=== PATIENT | male | born 1985 | race American Indian/Alaskan Native ===

== ENCOUNTER 2021-07-06 22:07 | Emergency (ER) | payer SELFPAY ==
[2021-07-06] MEDS ORDERED: diphenhydrAMINE 50 MG/ML VIAL IV ONE (22:48)
[2021-07-06] MEDS ORDERED: HYDROmorphone 1 MG/1 ML INJ IV ONE (22:48)
[2021-07-06] MEDS ORDERED: ONDANSETRON 4 MG/2 ML INJ IV ONE (22:48)
--- NOTE | 2021-07-06 22:53 | Emergency Department Report ---
HPI - General Chief Complaint: Extremity Injury, Lower Time Seen by Provider: 07/06/21 22:40 - HPI HPI: Room 34 The patient is a 36-year-old female presenting with a chief complaint of sickle cell pain crisis. Patient states since yesterday she has had pain in her lower back bilateral knees and bilateral lower extremities. Patient denies any preceding trauma. Patient denies history of fever. Patient currently gives her pain a score of 9/10 ED Past Medical Hx - Past Medical History Previous Medical History?: Yes Additional medical history: Sickle cell disease - Surgical History Past Surgical History?: Yes Additional Surgical History: R HIP SURGERY secondary to avascular necrosis - Family History Family history: no significant - Social History Smoking Status: Never Smoker Substance Use Type: None (Denies illicit drug use), Alcohol (Occasional) - Medications Home Medications: Home Medications Medication Instructions Recorded Confirmed Last Taken Type HYDROcodone/APAP 5-325 [[place] 1 - 2 each PO Q6HR PRN #14 tablet 07/07/21 Unk nown Rx 5/325] Ibuprofen [Motrin 800 MG tab] 800 mg PO Q8HR PRN #20 tablet 07/07/21 Unknown Rx ED Review of Systems ROS: Stated complaint: POSS SICKLE CELL CRISIS, LOWER BODY PAIN Other details as noted in HPI Constitutional: denies: fever Eyes: denies: eye pain ENT: denies: throat pain Respiratory: no symptoms reported Cardiovascular: denies: chest pain Endocrine: no symptoms reported Gastrointestinal: denies: abdominal pain Genitourinary: denies: dysuria Musculoskeletal: back pain, arthralgia Neurological: denies: headache Hematological/Lymphatic: other (Sickle cell pain crisis) Physical Exam - Physical Exam Vital Signs: Vital Signs 07/06/21 22:25 Temperature 98.4 F Pulse Rate 96 H Respiratory 16 Rate Blood Pressure 114/74 O2 Sat by Pulse 98 Oximetry Physical Exam: GENERAL: The patient is well-developed but thin female lying on stretcher a ppearing to be in moderate discomfort. [] HEENT: Normocephalic. Atraumatic. Extraocular motions are intact. Patient has moist mucous membranes. NECK: Supple. Trachea midline CHEST/LUNGS: Clear to auscultation. There is no respiratory distress noted. HEART/CARDIOVASCULAR: Regular. There is no tachycardia. There is no gallop rub or murmur. ABDOMEN: Abdomen is soft, nontender. Patient has normal bowel sounds. There is no abdominal distention. SKIN: There is no rash. There is no edema. There is no diaphoresis. NEURO: The patient is awake, alert, and oriented. The patient is cooperative. The patient has no focal neurologic deficits. The patient has normal speech. GCS 15 MUSCULOSKELETAL: There is no evidence of acute injury. ED Course Vital Signs 07/06/21 22:25 Temperature 98.4 F Pulse Rate 96 H Respiratory 16 Rate Blood Pressure 114/74 O2 Sat by Pulse 98 Oximetry - Reevaluation(s) Reevaluation #1: 07/07/21 00:47 Patient sedated after pain meds. Will observe ED Medical Decision Making - Lab Data Result diagrams: 07/06/21 23:06 07/06/21 23:06 Laboratory Tests 07/06/21 07/06/21 07/06/21 23:06 23:06 23:06 WBC 4.0 L RBC 3.83 Hgb 10.0 L Hct 31.6 L MCV 83 L MCH 26 L MCHC 32 RDW 18.2 H Plt Count 151 Lymph % (Auto) 48.9 H Desha % (Auto) 9.8 H Eos % (Auto) 0.2 Baso % (Auto) 0.4 Lymph # (Auto) 2.0 Desha # (Auto) 0.4 Eos # (Auto) 0.0 Baso # (Auto) 0.0 Seg Neutrophils % 40.7 Seg Neutrophils # 1.6 L Percent Retic 1.01 Sickle Cell Screen Sodium 145 Potassium 2.7 L* Chloride 106.3 Carbon Dioxide 24 Anion Gap 17 BUN 4 L Creatinine 0.3 L Estimated GFR > 60 BUN/Creatinine Ratio 13 Glucose 92 Calcium 7.9 L HCG, Qual Valproic Acid < 2.8 L 07/06/21 07/07/21 23:06 00:00 WBC RBC Hgb Hct MCV MCH MCHC RDW Plt Count Lymph % (Auto) Desha % (Auto) Eos % (Auto) Baso % (Auto) Lymph # (Auto) Desha # (Auto) Eos # (Auto) Baso # (Auto) Seg Neutrophils % Seg Neutrophils # Percent Retic Sickle Cell Screen Positive Sodium Potassium Chloride Carbon Dioxide Anion Gap BUN Creatinine Estimated GFR BUN/Creatinine Ratio Glucose Calcium HCG, Qual Negative Valproic Acid - Differential Diagnosis Sickle cell pain crisis Critical care attestation.: If time is entered above; I have spent that time in minutes in the direct care of this critically ill patient, excluding procedure time. ED Disposition Clinical Impression: Sickle cell pain crisis Disposition: HOME / SELF CARE / HOMELESS Is pt being admited?: No Does the pt Need Aspirin: No Condition: Stable Additional Instructions: Return to the emergency department should you develop worsening symptoms, inability to tolerate food or liquids, high fever or any other concerns Prescriptions: Ibuprofen [Motrin 800 MG tab] 800 mg PO Q8HR PRN #20 tablet PRN Reason: Pain , Severe (7-10) HYDROcodone/APAP 5-325 [Muse 5/325] 1 - 2 each PO Q6HR PRN #14 tablet PRN Reason: Pain Referrals: ANASTASIA ARMENTA MD [Primary Care Provider] - 3-5 Days Time of Disposition: 02:00
[2021-07-06 23:42] LABS: Basophils % (Auto) 0.4 % (0.0-1.8); Eosinophils % (Auto) 0.2 % (0.0-4.3); Hematocrit 31.6 % (35.5-45.6); Lymphocytes % (Auto) 48.9 % (13.4-35.0); Mean Corpuscular HGB Conc 32 % (32-34); Mean Corpuscular Volume 83 fl (84-94); Monocytes # (Auto) 0.4 K/mm3 (0.0-0.8); Monocytes % (Auto) 9.8 % (0.0-7.3); Platelet Count 151 K/mm3 (140-440); Red Blood Count 3.83 M/mm3 (3.65-5.03); Red Cell Distribution Width 18.2 % (13.2-15.2)
[2021-07-07] LABS: BUN/Creatinine Ratio 13; Blood Urea Nitrogen 4 mg/dL (9-20); Calcium 7.9 mg/dL (8.4-10.2); Hemolysis Index 33
[2021-07-07] MEDS ORDERED: POTASSIUM CHLORIDE ER 20 MEQ TAB PO ONE (00:05)
[2021-07-07 01:11] VITALS: BP 114/75
[2021-07-07] MEDS ORDERED: KETOROLAC 30 MG/1 ML INJ IV ONE (01:48)
== END 2021-07-07 02:40 | disposition home or self-care (01) ==
LOC: ED 22:07
DX: D57.00 Hb-SS disease with crisis, unspecified (principal); Z98.890 Other specified postprocedural states; Z72.89 Other problems related to lifestyle; Z79.899 Other long term (current) drug therapy
CPT/HCPCS: 36415; 80048; 80164; 84703; 85025; 85045; 85660; 96374; 96375; 99284; J1170; J1200; J1885; J2405

== ENCOUNTER 2021-09-01 19:45 | Emergency (ER) | payer SELFPAY ==
[2021-09-02] MEDS ORDERED: MORPHINE 4 MG/1 ML INJ IV ONE (02:29)
[2021-09-02] MEDS ORDERED: ONDANSETRON 4 MG/2 ML INJ IV ONE (02:29)
[2021-09-02] MEDS ORDERED: KETOROLAC 30 MG/1 ML INJ IV ONE (02:29)
[2021-09-02] MEDS ORDERED: SODIUM CHLORIDE 0.9% 1000 ML 1,000 ML IV ONE (02:29)
[2021-09-02 03:24] LABS: Basophils # (Auto) 0.1 K/mm3 (0.0-0.1); Eosinophils % (Auto) 0.1 % (0.0-4.3); Hematocrit 34.2 % (30.3-42.9); Hemoglobin 10.8 gm/dl (10.1-14.3); Lymphocytes % (Auto) 13.7 % (13.4-35.0); Mean Corpuscular HGB Conc 32 % (30-34); Mean Corpuscular Volume 81 fl (79-97); Platelet Count 365 K/mm3 (140-440); Red Blood Count 4.25 M/mm3 (3.65-5.03)
[2021-09-02 03:29] LABS: Red Cell Distribution Width 22.8 % (13.2-15.2)
[2021-09-02 03:45] LABS: Alanine Aminotransferase 18 units/L (7-56); Albumin 4.4 g/dL (3.9-5); Blood Urea Nitrogen 13 mg/dL (7-17); Calcium 9.9 mg/dL (8.4-10.2); Hemolysis Index 4
[2021-09-02 03:46] LABS: BUN/Creatinine Ratio 33
--- NOTE | 2021-09-02 04:23 | XRay Report ---
CHEST 1 VIEW INDICATION: cough. COMPARISON: 08/04/2021 FINDINGS: SUPPORT DEVICES: None. HEART: Within normal limits. LUNGS/PLEURA: No acute air space or interstitial disease. ADDITIONAL FINDINGS: None. IMPRESSION: 1. No acute findings. Signer Name: Jaiden Montilla MD Signed: 09/02/2021 4:19 AM Workstation Name: [id number]
[2021-09-02] MEDS ORDERED: hydrOXYzine PAMOATE 25 MG CAP PO ONE (04:28)
--- NOTE | 2021-09-02 04:42 | Emergency Department Report ---
ED General Adult HPI - General Chief complaint: Extremity Injury, Lower Stated complaint: LEG PAIN Source: EMS Mode of arrival: Ambulatory Limitations: No Limitations - History of Present Illness Initial comments: Patient is a 36-year-old -[place] female with a history of chronic sickle cell anemia disease with regular pain exacerbations presents to the ED with complaint of acute extubation of her chronic pain characterized by us persistent bilateral upper and lower extremity pain with low back pain for the last 1 week, worse in the last 2 days. Patient states that she took her narcotic pain medications at home with no relief patient denies chest pain, shortness of breath, nausea and vomiting, diarrhea, dysuria, urinary frequency and urgency, cough, nasal and sinus congestion, sore throat, dysuria, urinary frequency and urgency, fever and chills. MD Complaint: Bilateral upper and lower extremity pain; back pain; sickle cell pain -: Sudden, week(s) (1) Location: back (lower), upper extremity (bilaterally), lower extremity (bilaterally) Radiation: non-radiation Severity scale (0 -10): 8 Quality: aching, sharp Consistency: constant Improves with: none Worsens with: movement Associated Symptoms: denies other symptoms. denies: confusion, chest pain, cough, diaphoresis, headaches, loss of appetite, malaise, nausea/vomiting, rash, seizure, shortness of breath, syncope, weakness Treatments Prior to Arrival: none - Related Data Previous Rx's Medication Instructions Recorded Last Taken Type HYDROcodone/APAP 5-325 [[place] 1 - 2 each PO Q6HR PRN #14 tablet 07/07/21 Unknown Rx 5/325] Ibuprofen [Motrin 800 MG tab] 800 mg PO Q8HR PRN #20 tablet 07/07/21 Unknown Rx Allergies Allergy/AdvReac Type Severity Reaction Status Date / Time No Known Allergies Allergy Unverified 07/06/21 22:23 ED Review of Systems ROS: Stated complaint: LEG PAIN Other details as noted in HPI Constitutional: denies: chills, fever Eyes: denies: eye pain, eye discharge, vision change ENT: denies: ear pain, throat pain Respiratory: denies: cough, shortness of breath, wheezing Cardiovascular: denies: chest pain, palpitations Endocrine: no symptoms reported Gastrointestinal: denies: abdominal pain, nausea, vomiting, diarrhea Genitourinary: denies: urgency, dysuria, discharge Musculoskeletal: back pain (lower back), arthralgia (bilateral upper and lower extremity pain), myalgia. denies: joint swelling Skin: denies: rash, lesions Neurological: denies: headache, weakness, paresthesias Psychiatric: denies: anxiety, depression Hematological/Lymphatic: denies: easy bleeding, easy bruising ED Past Medical Hx - Past Medical History Hx Sickle Cell Disease: Yes (Chronic sickle cell pain) Additional medical history: Sickle cell disease - Surgical History Additional Surgical History: R HIP SURGERY secondary to avascular necrosis - Social History Smoking Status: Never Smoker Substance Use Type: None (Denies illicit drug use), Alcohol (Occasional) - Medications Home Medications: Home Medications Medication Instructions Recorded Confirmed Last Taken Type HYDROcodone/APAP 5-325 [[place] 1 - 2 each PO Q6HR PRN #14 tablet 07/07/21 Unknown Rx 5/325] Ibuprofen [Motrin 800 MG tab] 800 mg PO Q8HR PRN #20 tablet 07/07/21 Unknown Rx ED Physical Exam - General Limitations: No Limitations General appearance: alert, in no apparent distress - Head Head exam: Present: atraumatic, normocephalic, normal inspection - Eye Eye exam: Present: normal appearance, PERRL, EOMI Pupils: Present: normal accommodation - ENT ENT exam: Present: normal exam, normal orophraynx, mucous membranes moist, TM's normal bilaterally, normal external ear exam - Neck Neck exam: Present: normal inspection, full ROM - Respiratory Respiratory exam: Present: normal lung sounds bilaterally. Absent: respiratory distress, wheezes, rales, rhonchi, chest wall tenderness, accessory muscle use, decreased breath sounds, prolonged expiratory - Cardiovascular Cardiovascular Exam: Present: regular rate, normal rhythm, normal heart sounds. Absent: systolic murmur, diastolic murmur, rubs, gallop - GI/Abdominal GI/Abdominal exam: Present: soft, normal bowel sounds. Absent: tenderness, guarding, rebound, hyperactive bowel sounds, hypoactive bowel sounds, organomegaly, mass - Extremities Exam Extremities exam: Present: normal inspection, full ROM, tenderness (Palpable diffuse bilateral upper and lower extremity tenderness), normal capillary refill. Absent: pedal edema, joint swelling - Back Exam Back exam: Present: normal inspection, full ROM, tenderness (Palpable lumbosacral paraspinal musculoskeletal tenderness), muscle spasm, paraspinal tenderness. Absent: CVA tenderness (R), CVA tenderness (L), vertebral tenderness - Neurological Exam Neurological exam: Present: alert, oriented X3, CN II-XII intact, normal gait, reflexes normal - Psychiatric Psychiatric exam: Present: normal affect, normal mood - Skin Skin exam: Present: warm, dry, intact, normal color. Absent: rash ED Course Vital Signs 09/01/21 09/02/21 09/02/21 19:55 02:57 03:41 Temperature 98.5 F Pulse Rate 96 H Respiratory 181 H 20 18 Rate Blood Pressure 130/76 [Left] O2 Sat by Pulse 98 Oximetry ED Medical Decision Making - Lab Data Result diagrams: 09/02/21 03:05 09/02/21 03:05 - Radiology Data Radiology results: report reviewed, image reviewed [address] [address] XRay Report Signed Patient: AFRICA PIERRE MR#: [id number] 9 : 1985 Acct:[id number] Age/Sex: 36 / F ADM Date: 09/01/21 Loc: ED Attending Dr: Ordering Physician: AMMON ZAVALA Date of Service: 09/02/21 Procedure(s): XR chest 1V ap Accession Number(s): [id number] cc: AMMON ZAVALA Fluoro Time In Minutes: CHEST 1 VIEW INDICATION: cough. COMPARISON: 08/04/2021 FINDINGS: SUPPORT DEVICES: None. HEART: Within normal limits. LUNGS/PLEURA: No acute air space or interstitial disease. ADDITIONAL FINDINGS: None. IMPRESSION: 1. No acute findings. Signer Name: Jaiden Montilla MD Signed: 09/02/2021 4:19 AM Workstation Name: [id number] Transcribed By: JW Dictated By: Jaiden Montilla MD Electronically Authenticated By: Jaiden Montilla MD Signed Date/Time: 09/02/21418 DD/ 7 TD/TT: - Medical Decision Making This is a 36-year-old -[place] female with a history of chronic sickle cell anemia disease with regular pain exacerbations presents to the ED with c omplaint of acute extubation of her chronic pain characterized by us persistent bilateral upper and lower extremity pain with low back pain for the last 1 week, worse in the last 2 days. In the ED, patient is alert and oriented x3 and is not in any distress. Lab test results were reviewed and are all nonactionable. Patient was treated for pain in the ED and also given normal saline 1 L IV bolus x1. Chest x-ray showed no acute cardiopulmonary abnormalities or pneumonitis. On reevaluation, patient's pain is well controlled medication. Patient was discharged home and advised to continue taking her previously prescribed narcotic pain medications at home and to follow-up with her primary care physician in 5 to 7 days for reevaluation. Patient was advised return to the ED immediately if symptoms get worse. - Differential Diagnosis chronic pain; chronic sickle cell; Muscle spasm Critical care attestation.: If time is entered above; I have spent that time in minutes in the direct care of this critically ill patient, excluding procedure time. ED Disposition Clinical Impression: Chronic pain syndrome, Sickle cell pain crisis Disposition: 01 HOME / SELF CARE / HOMELESS Is pt being admited?: No Does the pt Need Aspirin: No Condition: Stable Instructions: Pain Medicine Instructions, [place], Chronic Pain, Adult Additional Instructions: All lab test results were reviewed and are all nonactionable. Chest x-ray showed no acute cardiopulmonary abnormalities or pneumonitis. Therefore take your regular medications and follow-up with your primary care physician in 7 to 10 days for reevaluation. Return to the ED immediately if symptoms get worse. Referrals: VIPUL LIZARRAGA MD [Primary Care Provider] - 3-5 Days Time of Disposition: 05:54 Print Language: GUYANESE
[2021-09-02] MEDS ORDERED: oxyCODONE /ACETAMINOPHEN 5-325MG TAB PO ONE (05:59)
[2021-09-02 06:48] VITALS: BP 108/89
== END 2021-09-02 06:47 | disposition home or self-care (01) ==
LOC: EDSEX 19:45 → ED 19:45
DX: G89.4 Chronic pain syndrome (principal); D57.00 Hb-SS disease with crisis, unspecified; Z72.89 Other problems related to lifestyle; Z79.899 Other long term (current) drug therapy
CPT/HCPCS: 36415; 71045; 80053; 85025; 85045; 96361; 96374; 96375; 99284; J1885; J2270; J2405; J7030; Q0177; J3490; Q0162